=== PATIENT | female | born 1965 | race Two or more races ===

== ENCOUNTER 2021-03-19 06:30 | Day surgery (SDC) | payer OTHER ==
[~2021-03-19 06:30] MED LIST: METFORMI PO; STEGLATRO5 MG
[2021-03-19] MEDS ORDERED: CILOXAN5 ML OTIC (11:30)
== END 2021-03-19 14:45 | disposition home or self-care (01) ==
LOC: CIR.AMB 06:30
PROVIDERS: ATTEND Otolaryngology Otology & Neurotology
DX: H91.21 Sudden idiopathic hearing loss, right ear (principal); Z20.822 Contact with and (suspected) exposure to COVID-19